=== PATIENT | male | born 1975 | race African-American/Black ===

== ENCOUNTER 2020-03-15 21:19 | Emergency (ER) | payer OTHER ==
[~2020-03-15] VITALS: Ht 188 cm; Wt 86.0 kg
[2020-03-15] MEDS ORDERED: IBUPROFEN 600MG TABLET PO ONE (21:45)
[2020-03-15 21:52] VITALS: BP 116/82
== END 2020-03-15 22:35 | disposition home or self-care (01) ==
LOC: ER 21:19
DX: S40.022A Contusion of left upper arm, initial encounter (principal); S40.021A Contusion of right upper arm, initial encounter; S50.311A Abrasion of right elbow, initial encounter; V18.0XXA Pedal cycle driver injured in noncollision transport accident in nontraffic accident, initial encounter; Y93.89 Activity, other specified; Y92.488 Other paved roadways as the place of occurrence of the external cause
CPT/HCPCS: 29130; 73070; 73130; 99284

== ENCOUNTER 2020-03-16 11:33 | Emergency (ER) | payer MEDICAID, OTHER ==
[~2020-03-16] VITALS: Ht 188 cm; Wt 91.0 kg
[2020-03-16 11:41] VITALS: BP 123/57
[2020-03-16] MEDS ORDERED: BACITRACIN 15GM TUBE TOP ONE (12:00)
[2020-03-16] MEDS ORDERED: TETANUS, DIPHTHERIA, PERTUSSIS VAC/PF 0.5ML (>7YR OLD) IM ONE (12:30)
== END 2020-03-16 12:40 | disposition home or self-care (01) ==
LOC: ER 11:33
DX: M79.644 Pain in right finger(s) (principal); L08.89 Other specified local infections of the skin and subcutaneous tissue
CPT/HCPCS: 90471; 90715; 99283